=== PATIENT | female | born 1975 | race Caucasian/White ===

== ENCOUNTER → 2017-04-27 | Outpatient (CLI) | payer BC ==
[2017-04-27 19:08] LABS: BLOOD UREA NITROGEN 17 mg/dl (7-18); CALCIUM 8.8 mg/dl (8.5-10.1); CARBON DIOXIDE 27 mmol/L (21-32); CREATININE 0.73 mg/dl (0.60-1.20); GLUCOSE 149 mg/dl (70-99); POTASSIUM 3.4 mmol/L (3.5-5.1); SODIUM 137 mmol/L (136-145)
== END | disposition home or self-care (01) ==
LOC: C.LABMFLN 16:27
PROVIDERS: ATTEND Family Medicine
DX: R07.9 Chest pain, unspecified (principal); I10 Essential (primary) hypertension

== ENCOUNTER → 2017-09-23 | Outpatient (CLI) | payer BC, OTHER ==
[~2017-09-23] MED LIST: ALBU18002 INH; BUPR75TA20 PO; BUSP5TAB59 PO; FURO-85 PO; LISI-725 PO; NALT380I IM; RANI150T85 PO
[2017-09-23 17:53] LABS: BASO % 0.5 %; BASO ABS # 0.06 K/uL (0-0.2); EOS ABS # 0.23 K/uL (0-0.5); HEMATOCRIT 44.4 % (37-47); HEMOGLOBIN 15.2 g/dL (12.0-16.0); IG# 0.05 K/uL (0.00-0.02); LYMPH % 30.5 %; LYMPH ABS # 3.58 K/uL (1.2-3.4); MEAN CELL VOLUME 92.9 fL (80-100); MEAN CORPUSCULAR HEMOGLOBIN 31.8 pg (25-34); MEAN CORPUSCULAR HGB CONC 34.2 g/dl (32-36); MEAN PLATELET VOLUME 10.2 fL (7.4-10.4); MONO % 7.7 %; NEUT % 58.9 %; NEUT ABS # 6.93 K/uL (1.4-6.5); PLATELET COUNT 240 K/uL (130-400); RED CELL DISTRIBUTION WIDTH CV 12.3 % (11.5-14.5); RED CELL DISTRIBUTION WIDTH SD 41.6 fL (36.4-46.3); WHITE BLOOD COUNT 11.75 K/uL (4.8-10.8)
[2017-09-23 18:01] LABS: INR 0.9 (0.9-1.1); PTT PATIENT 25.1 SECONDS (21.0-31.0)
[2017-09-23 18:31] LABS: POTASSIUM 3.9 mmol/L (3.5-5.1)
== END | disposition home or self-care (01) ==
LOC: C.LABMFLN 16:21
DX: Z01.818 Encounter for other preprocedural examination (principal)

== ENCOUNTER → 2017-09-30 | Day surgery (SDC) | payer BC, OTHER ==
[2017-09-26 16:18] VITALS: Ht 152.4 cm; Wt 73.2 kg
[~2017-09-30] VITALS: Ht 152.4 cm; Wt 73.2 kg
[~2017-09-30] MED LIST changes: +ACETAMINOPHEN 1000 MG/100 ML IV IV ONE; +ACETAMINOPHEN SUSP 160 MG/5 ML UDC PO PRN; +CLINDAMYCIN PHOS 150 MG/ML 2 ML VIAL IV SCH; +DEXAMETHASONE SOD INJ 4 MG/ML VIAL ONE; +FENTANYL CITRATE INJ 50 MCG/1 ML 2 ML VIAL ONE; +LACTATED RINGER'S 1000ML 1,000 ML IV SCH; +LIDOCAINE HCL 2% 2 ML VIAL (20MG/ML) ONE; +LIDOCAINE/EPINEPHRINE 1% 20 ML VIAL ONE; +MIDAZOLAM HCL 1 MG/ML 2ML VIAL ONE; +ONDANSETRON INJ 2 MG/ML 2 ML VIAL ONE; +PROPOFOL IV EMULSION 10 MG/ML 20 ML VIAL ONE; +RANITIDINE HCL 25 MG/ML INJ ONE
--- NOTE | 2017-09-30 09:28 | History & Physical Bridge - [place] ---
H&P Re-Evaluation Bridge Note: I have examined the patient, reviewed the History & Physical and in the interval since the performance of the History & Physical I have noted the following changes of clinical significance: No changes noted
--- NOTE | 2017-09-30 10:16 | [facility] Operative Report ---
Operative Report Operative Date Sep 30, 2017. Pre-Operative Diagnosis TONGUE TIP LESION Post-Operative Diagnosis SAME ABOVE Procedure(s) Performed EXCISIONAL BIOPSY OF TONGUE TIP LESION Surgeon HILDA Estimated Blood Loss 1ML Findings 3MM TONGUE LIP PAPILLOMATOUS LESION Specimens TONGUE TIP LESION I attest to the content of the Intraoperative Record and any orders documented therein. Any exceptions are noted below.
--- NOTE | 2017-09-30 10:18 | Discharge Instructions ---
Discharge Instructions Date of Service Sep 30, 2017. Admission Reason for Admission: Tongue Lesion Discharge Discharge Diagnosis / Problem: SAME Discharge Goals Goal(s): Diagnostic testing, Therapeutic intervention Activity Recommendations Activity Limitations: as noted below LIGHT ACTIVITY FOR 24-48HRS . Current Hospital Diet Patient's current hospital diet: Discharge Diet Recommended Diet: Regular Diet Procedures Procedures Performed: EXCISIONAL BIOPSY OF TONGUE TIP LESION Pending Studies Studies pending at discharge: no Medical Emergencies . Who to Call and When: Medical Emergencies: If at any time you feel your situation is an emergency, please call 911 immediately. . Non-Emergent Contact Non-Emergency issues call your: Surgeon . . "Provider Documentation" section prepared by Jude Gao. .
--- NOTE | 2017-09-30 10:44 | OPERATIVE REPORT ---
DATE OF OPERATION: 09/30/2017 PREOPERATIVE DIAGNOSIS: Tongue tip lesion. POSTOPERATIVE DIAGNOSIS: Tongue tip lesion. PROCEDURE PERFORMED: Excisional biopsy of tongue tip lesion. SURGEON: Jude Gao MD ANESTHESIA: General laryngeal mask airway. ESTIMATED BLOOD LOSS: 1 mL. FINDINGS: 3 mm papillomatous lesion involving the tongue tip. SPECIMENS: Tongue tip lesion for permanent pathological assessment. COMPLICATIONS: None. INDICATIONS FOR THE PROCEDURE: The patient is a 42-year-old female with a several-month history of a tongue tip lesion that is relatively asymptomatic. 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 I recommended removal for diagnostic and therapeutic purposes. DETAILS OF PROCEDURE: After informed consent had been obtained from the patient, the patient was wheeled to the operating room and placed on the operating room table in the supine position. Monitors were placed. After induction of general anesthesia via laryngeal mask airway, the 0 silk suture was placed into the midline of the tongue and the tongue was retracted. A total of 1.5 mL of 1% lidocaine with 1:100,000 epinephrine was used to inject the mucosa and submucosa overlying the planned incision site. After allowing adequate time for vasoconstriction and anesthesia, a #15 scalpel was used to make an elliptical incision around the 3 mm papillomatous lesion. This was carried down through the mucosa, submucosa, and down to the tongue musculature. The lesion was removed in its entirety. It was then sent off for permanent pathological assessment. Bovie electrocautery was used to achieve adequate hemostasis. The elliptical incision was closed with 3 simple interrupted 3-0 chromic sutures. This marked the end of the case. The patient tolerated the procedure well and there were no apparent complications. The patient had her laryngeal mask airway removed and was transferred to the recovery room in stable condition. I attest to the content of the Intraoperative Record and any orders documented therein. Any exception s are noted below.
--- NOTE | 2017-09-30 11:14 | Anesthesia Progress Nt - [facility] ---
Anesthesia Post Op Note Date & Time Sep 30, 2017 at 11:14 Vital Signs Pain Intensity: 0 Vital Signs Past 12 Hours Date Time Temp Pulse Resp B/P (MAP) Pulse Ox O2 Delivery O2 Flow Rate FiO2 09/30/17 10:53 114/72 09/30/17 10:51 85/63 09/30/17 10:50 55 14 95 09/30/17 10:50 55 14 09/30/17 10:46 105/65 09/30/17 10:45 55 16 97 09/30/17 10:45 55 16 09/30/17 10:41 104/66 09/30/17 10:40 56 15 09/30/17 10:40 56 15 100 09/30/17 10:39 63 13 09/30/17 10:39 63 13 99 09/30/17 10:36 104/72 09/30/17 10:34 60 19 09/30/17 10:34 60 19 97 09/30/17 10:31 111/70 09/30/17 10:29 64 16 09/30/17 10:29 64 16 97 09/30/17 10:26 114/75 09/30/17 10:26 111/68 09/30/17 10:24 36.5 70 16 114/75 98 Mask 8 09/30/17 08:46 36.8 63 16 134/86 (102) 95 Room Air Notes Mental Status: alert / awake / arousable, participated in evaluation Pt Amnestic to Procedure: Yes Nausea / Vomiting: adequately controlled Pain: adequately controlled Airway Patency, RR, SpO2: stable & adequate BP & HR: stable & adequate Hydration State: stable & adequate Anesthetic Complications: no major complications apparent
[2017-09-30 11:34] VITALS: TEMP 36.7
[2017-09-30 12:04] VITALS: BP 125/77; PULSE 56; O2SAT 96
== END | disposition home or self-care (01) ==
LOC: X.SURG 08:24
DX: K14.8 Other diseases of tongue (principal); K21.9 Gastro-esophageal reflux disease without esophagitis; F41.9 Anxiety disorder, unspecified; I10 Essential (primary) hypertension; F10.21 Alcohol dependence, in remission; E11.9 Type 2 diabetes mellitus without complications; E66.9 Obesity, unspecified; F17.200 Nicotine dependence, unspecified, uncomplicated; Z88.0 Allergy status to penicillin